=== PATIENT | female | born 2000 | race Caucasian/White ===

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

== ENCOUNTER → 2023-02-12 15:25 | Outpatient (BNVA) | payer OTHER, SELFPAY | PROVIDERS: Visit Provider Nurse Practitioner Women's Health | DX: Z12.4 Encounter for screening for malignant neoplasm of cervix (principal); Z01.419 Encounter for gynecological examination (general) (routine) without abnormal findings | CPT/HCPCS: 80074; 84439; 84443; 84481; 86695; 86696; 87491; 87591; 87806; 88175 ==

== ENCOUNTER → 2024-03-16 15:30 | Outpatient (BNVA) | payer OTHER, SELFPAY | PROVIDERS: Visit Provider Nurse Practitioner Women's Health | DX: Z01.419 Encounter for gynecological examination (general) (routine) without abnormal findings (principal) | CPT/HCPCS: 81000; 82306; 82607; 85025 ==